=== PATIENT | male | born 1980 | race Two or more races ===

== ENCOUNTER 2025-06-24 17:46 | Emergency (ER) | payer OTHER ==
[~2025-06-24] VITALS: Ht 172.7 cm; Wt 83.4 kg
--- NOTE | 2025-06-24 18:28 | ED.PDOC ---
Back pain HPI HPI Comments PT PRESENTED TO ED FOR FALL INJURY X6 HOURS AGO S/P FALL FROM LADDER, APPROX. 2 FT. AND FELL DIRECTLY ON RIGHT ARM AND HIT RIGHT LATERAL HEAD. (-) LOC. (+) NUMBNESS/TINGLING. PT UNABLE TO BARE WEIGHT ON RIGHT ARM. SLING APPLIED. GCS-15, ALL VSS. Chief Complaint: Fall Injury Time Seen by MD: 18:05 Reviewed Notes: Nurses Notes, Medications, Allergies Allergies: Coded Allergies: No Known Drug Allergy (Verified Allergy, Unknown, 06/24/25) Information Source: Patient Mode of Arrival: Ambulatory Past Medical History PAST MEDICAL HISTORY: Denies Surgical History: Denies all surgeries Family History Family History: Reviewed,noncontributory to illness Social History Smoker: Non-Smoker Alcohol: Denies ETOH Use Drugs: Denies Drug Use All Other Systems: Reviewed and Negative (see hpi) Physical Exam General Appearance: No Apparent Distress, Normal HEENT: Normal ENT Inspection, Pharynx Normal, TMs Normal Neck: Full Range of Motion, Non-Tender Respiratory: Chest Non-Tender, Lungs Clear, No Respiratory Distress, Normal Breath Sounds Cardiovascular: No Edema, No JVD, No Murmur, No Gallop, Normal Peripheral Pulses, Regular Rate/Rhythm Breast Exam: Deferred Gastrointestinal: No Organomegaly, Non Tender, No Pulsatile Mass, Normal Bowel Sounds, Soft Genitalia: Deferred Pelvic: Deferred Rectal: Deferred Extremities: Normal capillary refill, Normal range of motion, Non-tender, No pedal edema Musculoskeletal : Location: Right Extremity Location: Wrist (Positive edema about the wrist moderate tenderness on palpation anterior and posterior wrist strength sensory motion intact positive radial pulse noted abrasions or lacerations) Apperance: Normal Neurologic: Alert, No Motor Deficits, Normal Affect, Normal Mood, No Sensory Deficits Cerebellar Function: Normal Reflexes: Normal Skin: Dry, Normal Color, Warm Lymphatic: No Adenopathy Was a procedure done? Was a procedure done?: No Back Pain Differential Dx Differential Diagnosis: Fracture, Musculoskeletal Pain X-Ray, Labs, Meds, VS Vital Signs Date Time Temp Pulse Resp B/P (MAP) Pulse Ox O2 Delivery O2 Flow Rate FiO2 06/24/25 19:03 97 Room Air* 0 21 06/24/25 19:01 98.4 79 17 124/73 (90) 96 98.4 06/24/25 17:49 98.0 73 16 109/66 97 98.0 Current Medications Medications (Trade) Dose Ordered Sig/Alexandra Route Start Time Stop Time Status Last Admin Ketorolac Tromethamine (Toradol Injection) 60 mg ONCE ONCE IM 06/24/25 18:30 06/24/25 18:31 DC 06/24/25 18:58 X-Ray, Labs, Meds, VS Comment CLINICAL INDICATION: right wrist injury/pain TECHNIQUE: XYXY R WRIST 3+ VIEW XRAY Comparison: None FINDINGS/IMPRESSION: : There is no evidence of acute fracture or dislocation. Soft tissues are unremarkable. PATIENT PLACED IN VELCRO SPLINT FOR COMFORT. SCRIPT TRIAL OF ANTI- INFLAMMATORIES ADVISED TAKE MEDICATION PRESCRIBED SIDE EFFECTS DISCUSSED. ADVISED ON RICE. ADVISED TO FOLLOW UP WITH OCCUPATIONAL HEALTH RETURN FOR WORK. FOLLOW UP WITH THE PCP. CONSIDER FURTHER IMAGING IF SYMPTOMS PERSIST. ER RETURN PRECAUTIONS GIVEN PATIENT INDICATES UNDERSTANDING AGREES WITH DISCHARGE PLAN OF CARE. Time of 1ST Reevaluation: 18:05 Reevaluation 1ST: Unchanged Time of 2ND Reevaluation: 19:06 Reevaluation 2ND: Improved Patient Education/Counseling: Diagnosis, Treatment, Need For Follow Up Family Education/Counseling: Diagnosis, Treatment, Prognosis, Need For Follow Up SEPSIS Sepsis Screen Date sepsis recognized/suspect: Jun 24, 2025 Time Sepsis recognized/suspect: 1754 Recent Procedure: No On Antibiotic Therapy: No Respiratory Rate >20: No Heart Rate >90: No Temp<36 C (96.8 F) or >38.3 C: No SBP <90 or MAP <65 mmHG: No New Acute Mental Status Change: No Is the patient on CPAP, BIPAP,: No Physician Orders R Wrist 3+ View Xray (06/24/25 18:28) Vital Signs Date Time Temp Pulse Resp B/P (MAP) Pulse Ox O2 Delivery O2 Flow Rate FiO2 06/24/25 19:03 97 Room Air* 0 21 06/24/25 19:01 98.4 79 17 124/73 (90) 96 98.4 06/24/25 17:49 98.0 73 16 109/66 97 98.0 Medications Medications Dose Ordered Sig/Alexandra Route Start Time Stop Time Status Last Admin Dose Admin Ketorolac Tromethamine 60 mg ONCE ONCE IM 06/24/25 18:30 06/24/25 18:31 DC 06/24/25 18:58 Departure 1 Departure Time of Disposition: 19:05 Impression: Primary Impression: Right wrist sprain Qualified Codes: S63.501A - Unspecified sprain of right wrist, initial encounter Disposition: HOME / SELF CARE / HOMELESS Condition: Stable e-Prescriptions Nabumetone (Nabumetone) 750 Mg Tab 1 TAB PO BID PRN for 5 Days, #10 TAB Prov: BENJAMÍN RICE 06/24/25 Discharged With: Relative Critical Care Note Critical Care Time?: No Stability Stability form required: BENJAMÍN Douglas Jun 24, 2025 18:28
[2025-06-24] MEDS: KETOROLAC TROMETH 60MG/2ML VIAL IM ONE (18:58)
[2025-06-24 19:01] VITALS: BP 124/73; PULSE 79; RESP 17; TEMP 98.4
[2025-06-24 19:03] VITALS: O2SAT 97
--- NOTE | 2025-06-24 19:04 | DVH ---
CLINICAL INDICATION: right wrist injury/pain TECHNIQUE: XYXY R WRIST 3+ VIEW XRAY Comparison: None FINDINGS/IMPRESSION: : There is no evidence of acute fracture or dislocation. Soft tissues are unremarkable.
[2025-06-24] MEDS ORDERED: NABU-74 PO (19:06)
== END 2025-06-24 19:07 | disposition home or self-care (01) ==
LOC: EDSEX 17:52 → ER 17:52
DX: S61.511A Laceration without foreign body of right wrist, initial encounter (principal); S63.591A Other specified sprain of right wrist, initial encounter; W11.XXXA Fall on and from ladder, initial encounter; Y93.89 Activity, other specified; Y92.89 Other specified places as the place of occurrence of the external cause; Y99.8 Other external cause status
CPT/HCPCS: 29125; 73110; 96372; 99283; J1885